=== PATIENT | female | born 1990 | race Caucasian/White ===

== ENCOUNTER 2018-03-16 05:59 | Day surgery (SDC) | payer BC ==
[2018-03-15 13:30] LABS: Absolute Lymphocytes (CBC) 2.5 K/uL (0.7-4.9); Absolute Monocytes 0.7 K/uL (0.1-1.3); Absolute Neutrophil 5.1 K/uL (1.8-8.0); Basophils % 0.6 % (0-1.3); Hematocrit 36.9 % (36.0-45.0); MCH 30.3 pg (27.0-35.0); MCV 89.3 fL (80-100); MPV 8.5 fL (7.6-11.3); Monocytes % 8.6 % (3.3-12.3); RBC Red Blood Cell Count 4.13 M/uL (3.86-4.86)
[2018-03-15 13:34] LABS: Protime INR 0.99
[2018-03-15 16:30] LABS: Urine Appearance CLOUDY; Urine Bilirubin NEGATIVE (NEG); Urine Blood NEGATIVE (NEG); Urine Color YELLOW; Urine Glucose NEGATIVE (NEG); Urine Protein NEGATIVE (NEG); Urine Specific Gravity 1.025 (1.005-1.030); Urine Urobilinogen 0.2 mg/dL (0.2-1.0); Urine pH 5.5 (5.0-7.0)
[2018-03-15 16:31] LABS: Urine Microscopic Reflex ORDER UMIC
--- NOTE | 2018-03-15 16:57 | PREOPHP ---
Date of Admission: 03/16/2018 History Of Present Illness: This is a 27-year-old, primigravida with intrauterine demise. The patient is supposed to be 14 and half to almost 15 weeks . Uterine size is compatible with an 8-9 weeks, probably failed within the last 3 weeks to a month. She is A negative, will receive Rh oGAM during her hospital stay. Full discussion about options including expectant management, infecti on, blood loss, anesthetic complications, injury to bladder, bowel, ureter, postoperative complicatio ns, clots in legs also discussed as possible risks and complications. Family History: Grandmother on the father's side with colon and prostate cancer. Past Surgical History: The patient has had her wisdom teeth removed in the past. That is only surge ry. Allergies: NO ALLERGIES. Medications: vitamins the only medications prior to admission. Social History: Does not smoke. Physical Examination: HEENT: Clear. Pupils equal, round, and reactive to light and accommodation. Conjunctivae well perf used. No oral, lingual or buccal lesions. Chest and Lungs: Clear. Heart: Without murmurs, thrills, heaves, or rubs. Breasts: Not examined today, but normal on previous visits. Extremities: Clear without edema, cyanosis, or clubbing. Pelvic: Uterine size is compatible with 9 weeks plus or minus a week. Assessment And Plan: We will bring the patient back this afternoon for laminaria insertion and then proceed with D and C tomorrow. RAHUL/JAMES Voice ID: [id number]
[2018-03-15 17:01] LABS: Urine Bacteria <20 /HPF (<20); Urine Culture Reflex Order NOT NEEDED; Urine RBC <5 /HPF (NONE SEEN); Urine Yeast FEW (NONE SEEN)
[2018-03-16] MEDS ORDERED: CEFAZOLIN/SWI 1gm 1 GM/10 ML SYR ONE (06:15)
[2018-03-16] MEDS ORDERED: CLINDAMYCIN 900MG/D5W 900 MG/50 ML BAG IV ONE (06:42)
[2018-03-16] MEDS ORDERED: PROPOFOL 200 MG/20 ML VIAL IV ONE (06:45)
[2018-03-16] MEDS ORDERED: MIDAZOLAM HCL 2 MG/2 ML INJ ONE (06:45)
[2018-03-16] MEDS ORDERED: LIDOCAINE 1% MPF 5 ML VIAL ONE (06:45)
[2018-03-16] MEDS ORDERED: FENTANYL CITR 100 MCG/2 ML ONE (06:45)
[2018-03-16] MEDS ORDERED: SILVER NITRATE 1 APPL TOP ONE (06:46)
[2018-03-16] MEDS ORDERED: OXYTOCIN 10 UNIT/ML ML IV ONE (06:46)
[2018-03-16] MEDS ORDERED: METHYLERGONOVINE 0.2MG/ML AMP IM ONE (06:47)
[2018-03-16] MEDS ORDERED: ONDANSETRON 4 MG/2 ML VIAL ONE (06:49)
[2018-03-16] MEDS ORDERED: OXYTOCIN/LR 20 UNIT/1,000 ML BAG IV SCH (07:00)
[2018-03-16] MEDS ORDERED: KETOROLAC 30 MG/ML INJ ONE (07:15)
[2018-03-16] MEDS ORDERED: Ringers Lactate 1,000 ML IV ONE ×2 (08:00→08:18)
[2018-03-16] MEDS ORDERED: MEPERIDINE HCL 25 MG/0.5 ML ONE ×2 (08:06→08:23)
[2018-03-16] MEDS ORDERED: HYDROCODONE/APAP 5/325 MG TAB ONE (09:28)
--- NOTE | 2018-03-16 13:48 | OP ---
Surgeon: Vasile Steinberg MD Hospital Course: A 27-year-old female, who underwent suction and curettage for uterine evacuation, m issed , intrauterine demise at 14 weeks 5 days by dates. Demise thought to have occurr ed around 9-10 weeks. General anesthetic was employed. Estimated blood loss 225 cc. The patient wi ll be observed for 2 hours, then dismissed. She has a prescription for doxycycline to be taken twice a day for 6 pills. She has a prescription for Cytotec to be taken 100 mcg every 4 hours for 4 pills . She is to see me in the office in 1 week for followup to report any temperature elevation of 100 d egrees or greater, severe pain, heavy bleeding, or any other type of abnormalities. Final Diagnoses: Intrauterine demise 14 weeks 5 days, suction and curettage for uterine evacua tion. RhoGAM administered. RAHUL/JAMES Voice ID: [id number] Report ID: [id number]
--- NOTE | 2018-03-16 17:28 | OP ---
Surgeon: Vasile Steinberg MD Indications: This is a 27-year-old primigravida, 14 weeks intrauterine demise. Romi akbar is in the 9-10 weeks size range and no cardiac activity. Full preoperative discussion conc erning procedure and complications including infection, blood loss, anesthetic complications, injury to bladder, bowel, ureter, postoperative complications, clots in legs, and pneumonia. The patient kn ows fully well this does not constitute all the possible problems that could occur during or followin g surgery. She is Rh negative and will receive RhoGAM before she leaves the hospital. General anest hesia, endotracheal intubation. Procedure In Detail: Time-out performed after the patient was prepped and draped in usual sterile ma nner. The laminaria and packing which had been placed the evening prior were removed. The cervix wa s dilated and then a 10 mm curved suction curette was used to evacuate the obviously necro tic intrauterine contents. Suction curette was followed by sharp curettement. A 0.2 mg of Methergin e was given IM as well as IV drip Pitocin. The patient had Cleocin 900 mg prior to the procedure ___ sharp curettement was followed by a with second sharp curettement and then a third suction. No further bleeding was seen. Estimated blood loss 225 cc. The patient tolerated all pro cedures well. She was transferred back to the recovery room in good condition. Final Diagnosis: , suction curettage for uterine evacuation, RhoGAM to be administered. RAHUL/JAMES Voice ID: [id number] Report ID: [id number]
== END 2018-03-16 10:20 | disposition home or self-care (01) ==
LOC: OR 05:59
PROVIDERS: ATTEND Specialist
PROC: 10D17ZZ Extraction of Products of Conception, Retained, Via Natural or Artificial Opening (ICD-10-PCS; principal; 2018-03-16 07:00)
DX: O02.1 Missed abortion (principal); Z67.91 Unspecified blood type, Rh negative; Z29.13 Encounter for prophylactic Rho(D) immune globulin; Z88.0 Allergy status to penicillin; Z80.0 Family history of malignant neoplasm of digestive organs; Z80.42 Family history of malignant neoplasm of prostate
CPT/HCPCS: 36415; 81003; 81015; 85025; 85461; 85610; 85730; 86850; 86901; 88305; J0690; J2175; J2210; J2250; J2405; J2590; J2790; J3010